=== PATIENT | female | born 1965 | race American Indian/Alaskan Native ===

== ENCOUNTER 2018-11-28 10:43 | Emergency (ER) | payer SELFPAY ==
[2018-11-28] MEDS ORDERED: NACL 0.9% 1000 ML 1,000 ML IV ONE (11:10)
--- NOTE | 2018-11-28 11:12 | Emergency Department Report ---
- General Chief complaint: Weakness Stated complaint: GENERAL WEAKNESS Time Seen by Provider: 11/28/18 11:05 Source: EMS Mode of arrival: Ambulatory Limitations: No Limitations - History of Present Illness Initial comments: 53-year-old female has not is her hypertension presents to the hospital with complaints of generalized weakness, lightheadedness, mild headache that started after walking a half mile in hot humid weather in her fatigues. Patient states she did drink water today. Since getting out of the hot environment she reports feeling better and only complains of mild frontal headache. She denies weakness, numbness, blurred vision, nausea, vomiting, shortness of breath, or chest pain. She is compliant with her lisinopril 20 mg every evening. - Related Data Allergies Allergy/AdvReac Type Severity Reaction Status Date / Time Penicillins Allergy Dizziness Verified 11/28/18 11:04 ED Review of Systems ROS: Stated complaint: GENERAL WEAKNESS Other details as noted in HPI Comment: All other systems reviewed and negative ED Past Medical Hx - Past Medical History Hx Hypertension: Yes - Social History Smoking Status: Current Every Day Smoker Substance Use Type: None ED Physical Exam - General Limitations: No Limitations - Other Other exam information: General: No limitations, patient is alert in no acute distress Head exam: Atraumatic, normocephalic Eyes exam: Normal appearance, pupils equal reactive to light, extraocular movements intact ENT: Moist mucous membrane Neck exam: Normal inspection, full range of motion, no meningismus nontender Respiratory exam: Clear to auscultation bilateral, no wheezes, rales, crackles Cardiovascular: Normal rate and rhythm, normal heart sounds Abdomen: Soft, nondistended, and nontender, with normal bowel sounds, no rebound, or guarding Extremity: Full range of motion normal inspection no deformity Back: Normal Inspection, full range of motion, no tenderness Neurologic: Alert, oriented x3, cranial nerves intact, no motor or sensory deficit Psychiatric: normal affect, normal mood Skin: Warm, dry, intact ED Course Vital Signs 11/28/18 11/28/18 11/28/18 10:58 11:01 11:07 Temperature 97.9 F Pulse Rate 72 79 76 Respiratory 15 13 22 Rate Blood Pressure 142/80 Blood Pressure 154/90 [Left] O2 Sat by Pulse 96 94 94 Oximetry 11/28/18 11/28/18 11/28/18 11:15 11:30 11:45 Temperature Pulse Rate 83 72 66 Respiratory 22 14 12 Rate Blood Pressure 142/80 143/82 90/64 Blood Pressure [Left] O2 Sat by Pulse 97 97 99 Oximetry 11/28/18 11/28/18 11/28/18 12:01 12:15 12:30 Temperature Pulse Rate 67 76 69 Respiratory 15 15 13 Rate Blood Pressure 172/97 172/97 173/118 Blood Pressure [Left] O2 Sat by Pulse 96 97 92 Oximetry 11/28/18 11/28/18 11/28/18 12:45 13:01 13:15 Temperature Pulse Rate 86 88 80 Respiratory 22 22 20 Rate Blood Pressure 173/118 168/74 140/81 Blood Pressure [Left] O2 Sat by Pulse 94 96 98 Oximetry 11/28/18 11/28/18 11/28/18 13:30 13:45 14:00 Temperature Pulse Rate 77 75 76 Respiratory 19 15 15 Rate Blood Pressure 148/89 148/89 158/80 Blood Pressure [Left] O2 Sat by Pulse 95 94 92 Oximetry 11/28/18 14:15 Temperature Pulse Rate 79 Respiratory 17 Rate Blood Pressure 148/89 Blood Pressure [Left] O2 Sat by Pulse 93 Oximetry ED Medical Decision Making - Lab Data Result diagrams: 11/28/18 11:20 11/28/18 11:20 Lab Results 11/28/18 11/28/18 11/28/18 Range/Units 11:20 11:20 11:46 WBC 5.8 (4.5-11.0) K/mm3 RBC 3.86 (3.65-5.03) M/mm3 Hgb 13.0 (10.1-14.3) gm/dl Hct 37.9 (30.3-42.9) % MCV 98 H (79-97) fl MCH 34 H (28-32) pg MCHC 34 (30-34) % RDW 12.6 L (13.2-15.2) % Plt Count 160 (140-440) K/mm3 Lymph % (Auto) 33.2 (13.4-35.0) % [place] % (Auto) 5.7 (0.0-7.3) % Eos % (Auto) 3.6 (0.0-4.3) % Baso % (Auto) 0.4 (0.0-1.8) % Lymph # 1.9 (1.2-5.4) K/mm3 [place] # 0.3 (0.0-0.8) K/mm3 Eos # 0.2 (0.0-0.4) K/mm3 Baso # 0.0 (0.0-0.1) K/mm3 Seg Neutrophils % 57.1 (40.0-70.0) % Seg Neutrophils # 3.3 (1.8-7.7) K/mm3 Sodium 144 (137-145) mmol/L Potassium 4.3 (3.6-5.0) mmol/L Chloride 108.5 H (98-107) mmol/L Carbon Dioxide 25 (22-30) mmol/L Anion Gap 15 mmol/L BUN 21 H (7-17) mg/dL Creatinine 1.1 (0.7-1.2) mg/dL Estimated GFR 52 ml/min BUN/Creatinine Ratio 19 % Glucose 90 (65-100) mg/dL POC Glucose 96 (70-105) Calcium 9.3 (8.4-10.2) mg/dL Magnesium 2.00 (1.7-2.3) mg/dL Total Creatine Kinase 390 H (30-135) units/L - Medical Decision Making Exhaustion with dehydration Labs unremarkable Treated with IV fluids Feels better and will be discharged - Differential Diagnosis heat exhaustion, electrolyte abnormality, dehydration Critical Care Time: No Critical care attestation.: If time is entered above; I have spent that time in minutes in the direct care of this critically ill patient, excluding procedure time. ED Disposition Clinical Impression: Heat exhaustion, Dehydration Disposition: - TO HOME OR SELFCARE Is pt being admited?: No Does the pt Need Aspirin: No Condition: Stable Instructions: Heat Exhaustion (ED), Dehydration (ED) Additional Instructions: Follow up with your doctor or the clinic/doctor provided. Return if symptoms worsen as indicated by your discharge instructions Referrals: DARYL PERSON MD [Staff Physician] - 3-5 Days Time of Disposition: 14:30
[2018-11-28 11:37] LABS: Basophils % (Auto) 0.4 % (0.0-1.8); Eosinophils # (Auto) 0.2 K/mm3 (0.0-0.4); Eosinophils % (Auto) 3.6 % (0.0-4.3); Hematocrit 37.9 % (30.3-42.9); Lymphocytes # (Auto) 1.9 K/mm3 (1.2-5.4); Lymphocytes % (Auto) 33.2 % (13.4-35.0); Mean Corpuscular HGB Conc 34 % (30-34); Mean Corpuscular Volume 98 fl (79-97); Monocytes # (Auto) 0.3 K/mm3 (0.0-0.8); Monocytes % (Auto) 5.7 % (0.0-7.3); Platelet Count 160 K/mm3 (140-440); Red Blood Count 3.86 M/mm3 (3.65-5.03); Red Cell Distribution Width 12.6 % (13.2-15.2)
[2018-11-28 12:00] LABS: Calcium 9.3 mg/dL (8.4-10.2)
[2018-11-28 14:24] VITALS: BP 148/89
== END 2018-11-28 14:54 | disposition home or self-care (01) ==
LOC: ED 10:43
DX: E86.0 Dehydration (principal); I10 Essential (primary) hypertension; F17.200 Nicotine dependence, unspecified, uncomplicated
CPT/HCPCS: 36415; 80048; 82550; 82962; 83735; 85025; 96360; 99284; J7030